=== PATIENT | male | born 1990 | race Caucasian/White ===

== ENCOUNTER 2017-12-30 08:47 | Emergency (ER) | payer OTHER ==
[~2017-12-30] VITALS: Ht 167.6 cm; Wt 92.7 kg
[2017-12-30 08:58] VITALS: BP 124/63; Ht 167.6 cm; Wt 92.7 kg
== END 2017-12-30 10:38 | disposition home or self-care (01) ==
LOC: ED 08:47
DX: Z20.2 Contact with and (suspected) exposure to infections with a predominantly sexual mode of transmission (principal)
CPT/HCPCS: J0696

== ENCOUNTER 2018-05-02 16:55 | Emergency (ER) | payer OTHER ==
[~2018-05-02] VITALS: Ht 167.6 cm; Wt 95.7 kg
[2018-05-02 17:08] VITALS: BP 135/80; Ht 167.6 cm; Wt 95.7 kg
== END 2018-05-02 19:20 | disposition left against medical advice (07) ==
LOC: ED 16:55
DX: Z53.21 Procedure and treatment not carried out due to patient leaving prior to being seen by health care provider (principal)

== ENCOUNTER 2020-05-21 20:57 | Emergency (ER) | payer OTHER ==
[~2020-05-21] VITALS: Ht 167.6 cm; Wt 98.0 kg
[2020-05-21 21:07] VITALS: BP 120/63; Ht 167.6 cm; Wt 98.0 kg
[2020-05-21] MEDS ORDERED: MOTION RELIEF25 MG PO (21:34)
== END 2020-05-21 21:43 | disposition home or self-care (01) ==
LOC: ED 20:57
DX: H81.10 Benign paroxysmal vertigo, unspecified ear (principal)